=== PATIENT | female | born 1970 | race Two or more races ===

== ENCOUNTER 2018-03-04 16:25 | Emergency (ER) | payer OTHER ==
[~2018-03-04] VITALS: Ht 157.5 cm; Wt 53.2 kg
[2018-03-04 17:09] LABS: HEMATOCRIT 32.7 % (36.0-46.0); HEMOGLOBIN 11.5 G/DL (11.9-15.5); MCH 32.6 PG (29.0-34.0); MCHC 35.2 G/DL (30.0-36.0); MCV 92.6 FL (83-99); PLATELET COUNT 134 K/uL (156-360); RBC DIS.WIDTH-CV 14.5 % (11.8-14.6); RBC DIS.WIDTH-SD 48.6 % (39-53); RED BLOOD COUNT 3.53 M/uL (3.80-5.20)
[2018-03-04 17:27] LABS: ALBUMIN 3.6 g/dL (3.2-4.8); CHLORIDE 104 mEq/L (99-109); POTASSIUM 3.7 mEq/L (3.7-5.4); SODIUM 138 mEq/L (136-147)
[2018-03-04 17:29] LABS: GLUCOSE 94 mg/dL (70-99); TOTAL PROTEIN 7.2 g/dL (6.4-8.3)
[2018-03-04 17:31] LABS: TOTAL BILIRUBIN 0.3 mg/dL (0.0-1.0)
[2018-03-04 17:33] LABS: ALKALINE PHOSPHATASE 117 IU/L (3-129); CREATININE 1.3 mg/dL (0.6-1.3); GFR ESTIMATE (CALCULATED) 47 mL/min/
[2018-03-04 17:34] LABS: AST (GOT) 15 IU/L (2-34); UREA NITROGEN (BUN) 14 mg/dL (9-23)
[2018-03-04 17:36] LABS: ALT (GPT) 5 IU/L (3-49); LIPASE 23 U/L (1.0-51.0)
[2018-03-04 17:43] LABS: QUANTITATIVE HCG < 4.0 MIU/ML
[2018-03-04 18:26] LABS: APPEARANCE SL.HAZY ((CLEAR)); BILIRUBIN NEGATIVE; BLOOD SMALL; COLOR YELLOW ((YELLOW)); GLUCOSE (STRIP) NEGATIVE; KETONES NEGATIVE; LEUKOCYTES LARGE; NITRITE NEGATIVE; PROTEIN (STRIP) >=500; SPECIFIC GRAVITY 1.022 (1.000-1.030); UROBILINOGEN 0.2 MG/DL (0.2-1.0)
[2018-03-04 18:40] LABS: BACTERIA RARE /HPF; EPITHELIAL CELLS 1+ /HPF; MUCUS TRACE /LPF; RED BLOOD CELLS 20-30 /HPF (0-5); UCUL ADDED? YES; WHITE BLOOD CELLS TNTC /HPF (0-5)
[2018-03-04] MEDS ORDERED: KEFLEX500 MG PO (19:59)
[2018-03-04] MEDS ORDERED: MOTRIN600 MG PO (19:59)
[2018-03-04] MEDS ORDERED: PERCOCET 5/31 TABLET PO (21:29)
[2018-03-04 21:33] VITALS: BP 159/111
== END 2018-03-04 21:34 | disposition home or self-care (01) ==
LOC: EME 16:25
DX: N39.0 Urinary tract infection, site not specified (principal); D25.9 Leiomyoma of uterus, unspecified; I10 Essential (primary) hypertension; N28.1 Cyst of kidney, acquired; Z86.73 Personal history of transient ischemic attack (TIA), and cerebral infarction without residual deficits; F17.200 Nicotine dependence, unspecified, uncomplicated
CPT/HCPCS: 74177; 80053; 81003; 83690; 84702; 85027; 87086; 99281; 99284